=== PATIENT | male | born 1950 | race Caucasian/White ===

== ENCOUNTER → 2023-08-03 16:33 | Outpatient (REF) | payer MEDICARE, OTHER, SELFPAY | LOC: CLAB 16:33 | PROVIDERS: ATTENDING PHYSICIAN Specialist | DX: Z85.51 Personal history of malignant neoplasm of bladder (principal) | CPT/HCPCS: 88112 ==

== ENCOUNTER → 2024-08-01 12:04 | Outpatient (REF) | payer MEDICARE, OTHER, SELFPAY | LOC: RAD 12:04 | PROVIDERS: ATTENDING PHYSICIAN Specialist; FAMILY PHYSICIAN Family Medicine | DX: N20.0 Calculus of kidney (principal) | CPT/HCPCS: 74018 ==

== ENCOUNTER → 2024-12-26 06:21 | Day surgery (SDC) | payer MEDICARE, OTHER, SELFPAY ==
[2024-12-26 07:10] LABS: Glucose - Point of Care 78 mg/dl (70-99)
== END ==
LOC: GI 06:21
PROVIDERS: ATTENDING PHYSICIAN Student in an Organized Health Care Education/Training Program
DX: Z12.11 Encounter for screening for malignant neoplasm of colon (principal); D12.2 Benign neoplasm of ascending colon; D12.3 Benign neoplasm of transverse colon; K63.5 Polyp of colon; K64.0 First degree hemorrhoids; Z86.0101 Personal history of adenomatous and serrated colon polyps
CPT/HCPCS: 45385; 82962; 88305